=== PATIENT | female | born 1975 | race Caucasian/White ===

== ENCOUNTER 2017-05-29 08:14 | Day surgery (SDC) | payer BC ==
[~2017-05-29 08:14] MED LIST: Lactated Ringers 1,000 ML IV SCH; Lidocaine 1%/Sod Bicarbonate in NS 8.4% 1 ML Syringe PRN; Sodium Chloride 0.9% 10 ML Syringe FLUSH PRN
--- NOTE | 2017-05-29 08:51 | PCM.PREANE ---
Preanesthetic Assessment - Procedure Proposed Procedure: Diagnostic colonoscopy - Anesthesia/Transfusion/Family Hx Anesthesia History: Prior Anesthesia Without Reaction Family History of Anesthesia Reaction: No Transfusion History: No Prior Transfusion(s) - Review of Systems General: No Symptoms Pulmonary: No Symptoms Cardiovascular: No Symptoms Gastrointestinal: No symptoms Neurological: No Symptoms Other: Reports: None - Physical Assessment NPO Status Date: 05/28/17 NPO Status Time: 23:00 Pulse: 81 O2 Sat by Pulse Oximetry: 99 Respiratory Rate: 16 Blood Pressure: 110/66 Temperature: 100.4 C Height: 1.57 m Weight: 69.4 kg ASA Class: 2 Mental Status: Alert & Oriented x3 Airway Class: Mallampati = 1 Dentition: Reports: Normal Dentition Thyro-Mental Finger Breadths: 3 Mouth Opening Finger Breadths: 3 ROM/Head Extension: Full Lungs: Clear to auscultation, Normal respiratory effort Cardiovascular: Regular Rate, Regular Rhythm - Lab Values: Laboratory Last Values Urine HCG, Qual Negative (NEGATIVE) 05/29/17 08:25 Potassium 4.0 05-07-17 - Allergies Allergies/Adverse Reactions: Allergies Allergy/AdvReac Type Severity Reaction Status Date / Time No Known Allergies Allergy Verified 05/27/17 13:00 - Blood Blood Available: No Product(s) Available: None - Acknowledgements Anesthesia Type Planned: MAC Pt an Appropriate Candidate for the Planned Anesthesia: Yes Alternatives and Risks of Anesthesia Discussed w Pt/Guardian: Yes Pt/Guardian Understands and Agrees with Anesthesia Plan: Yes PreAnesthesia Questionnaire HEENT History: Reports: None Cardiovascular History: Reports: Other (See Below) Other Cardiovascular History: fluid retention Respiratory History: Reports: None Gastrointestinal History: Reports: Chronic Constipation, Other (See Below) Other Gastrointestinal History: bowel wall thickening Genitourinary History: Reports: Other (See Below) Other Genitourinary History: microscopic hematuria 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: Musculoskeletal History: Reports: Other (See Below) Other Musculoskeletal History: L foot fracture, fracture of 5th metatarsal bone Neurological History: Reports: None Psychiatric History: Reports: None Endocrine/Metabolic History: Reports: Obesity/BMI 30+ Hematologic History: Reports: Other (See Below) Other Hematologic History: hypokalemia Immunologic History: Reports: None Oncologic (Cancer) History: Reports: None Dermatologic History: Reports: None - Past Surgical History Head Surgeries/Procedures: Reports: None HEENT Surgical History: Reports: None Cardiovascular Surgical History: Reports: None Respiratory Surgical History: Reports: None GI Surgical History: Reports: Cholecystectomy Female Surgical History: Reports: Section - HOME MEDS Home Medications: Home Meds Furosemide [Lasix] 20 mg PO DAILY 05/27/17 [History] Phentermine HCl 37.5 mg PO DAILY 05/27/17 [History] Potassium Chloride [Klor-Con] 20 mg PO DAILY 05/27/17 [History] medroxyPROGESTERone Acetate [Depo-Provera] 150 mg IM ASDIRECTED 05/27/17 [ History] - CURRENT (IN HOUSE) MEDS Current Meds: Current Medications Lactated Ringer's (Ringers, Lactated) 1,000 mls @ 125 mls/hr IV ASDIRECTED SILVANO Stop: 05/29/17 23:00 Lidocaine/Sodium Bicarbonate (Buffered Lidocaine 1% In Ns 8.4%) 0.25 ml .XX ONETIME PRN PRN Reason: Prior to IV Start Stop: 05/29/17 18:00 Sodium Chloride (Saline Flush) 10 ml FLUSH ASDIRECTED PRN PRN Reason: Keep Vein Open Stop: 05/29/17 18:00
[2017-05-29] MEDS ORDERED: Propofol 200 MG/20 ML SDV ONE (09:27)
[2017-05-29] MEDS ORDERED: Lidocaine 1% 4 ML ONE (09:27)
[2017-05-29] MEDS ORDERED: fentaNYL 100 MCG/2 ML SDV ONE (09:27)
[2017-05-29] MEDS ORDERED: Midazolam 1 MG/ML 2 ML SDV ONE (09:27)
--- NOTE | 2017-05-29 10:26 | PCM48HPAN ---
Post Anesthesia Note - EVALUATION WITHIN 48HRS OF ANESTHETIC Vital Signs in Normal Range: Yes Patient Participated in Evaluation: Yes Respiratory Function Stable: Yes Airway Patent: Yes Cardiovascular Function Stable: Yes Hydration Status Stable: Yes Pain Control Satisfactory: Yes Nausea and Vomiting Control Satisfactory: Yes Mental Status Recovered: Yes
--- NOTE | 2017-05-29 10:26 | PCM.OPNOTE ---
- General Post-Op/Procedure Note Date of Surgery/Procedure: 05/29/17 Operative Procedure(s): Colonoscopy with ileal biopsy 2 descending colon biopsy 1 and rectal biopsy 2 all using cold forceps Findings: 1. Melanosis coli 2. Posterior midline anal fissure 3. Anal tag posteriorly 4. No endoscopic gross evidence of inflammatory bowel disease Pre Op Diagnosis: Thickened descending colon by CT scan with associated change in bowel habits Post-Op Diagnosis: 1. Melanosis coli. 2. Posterior midline anal fissure with associated anal tag Anesthesia Technique: MAC, Moderate sedation Primary Surgeon: Cam[place] See Pathology: 1. Biopsy 2 2. Descending colon biopsy 1 3. Rectal biopsy 2 EBL in mLs: 0 Complications: None Condition: Good Free Text/Narrative:: After adequate IV sedation and analgesia was obtained with monitoring the patient was placed on her left side. Perianal inspection revealed a posterior midline fissure with exposed smooth muscle. There was an associated anal tag which was small. The sphincter tone was increased on digital rectal examination. A lubricated colonoscope was inserted into the rectum then advanced under direct vision to the cecum without difficulty. The bowel preparation was excellent. The ileum was intubated and was grossly normal. 2 biopsies were taken for histologic review given her change in bowel habits. The cecum, right, transverse, and descending colons were only remarkable for melanosis coli with no obvious endoscopic features consistent with colitis. I took random biopsies of the descending colon because of the CT findings. The sigmoid was unremarkable as well. The rectum in both views contained melanosis but no inflammatory changes. I took 2 random rectal biopsies with cold forceps. Air was removed as I finished the procedure which she tolerated well. Computer Graphic Artist photographs taken for the patient and for the record.
[2017-05-29 10:29] VITALS: BP 103/64
== END 2017-05-29 10:51 | disposition home or self-care (01) ==
LOC: JD.SDS 08:14
PROVIDERS: ATTEND Surgery
DX: K62.1 Rectal polyp (principal); K63.89 Other specified diseases of intestine; E66.9 Obesity, unspecified; E87.6 Hypokalemia; Z68.29 Body mass index [BMI] 29.0-29.9, adult; Z79.899 Other long term (current) drug therapy; Z98.890 Other specified postprocedural states
CPT/HCPCS: 45380; 81025; 88305; J2250; J3010; J7120; J2704

== ENCOUNTER 2020-04-07 18:59 | Observation (INO) | payer BC ==
--- NOTE | 2020-04-07 19:18 | EDM.PDOC ---
ED HPI GENERAL MEDICAL PROBLEM - General Chief Complaint: General Stated Complaint: LOW POTASSIUM Time Seen by Provider: 04/07/20 19:18 - History of Present Illness INITIAL COMMENTS - FREE TEXT/NARRATIVE: 44-year-old female presents emergency room with low potassium. 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 The patient is on supplemental potassium taken approximately 80 mEq a day. She is on Lasix 20 mg a day and she has recurrent problems with low potassium. The patient was instructed to come to the emergency room to have this treated. The patient has a lab size on her phone and indeed she has potassium of 2.4. She has some modest renal insufficiency. They did not check a magnesium.patient has problems with her fingers spasming in a flexion position at times otherwise she's doing okay. - Related Data Allergies Allergy/AdvReac Type Severity Reaction Status Date / Time acetaminophen Allergy Severe Hives Verified 04/07/20 19:19 [From Darvocet-N] propoxyphene Allergy Severe Hives Verified 04/07/20 19:19 [From Darvocet-N] Home Meds: Home Meds Furosemide [Lasix] 20 mg PO DAILY 05/27/17 [History] Phentermine HCl 37.5 mg PO DAILY 05/27/17 [History] Linaclotide [Linzess] 145 mcg PO DAILY 06/29/19 [History] Potassium Chloride 20 meq PO BID 04/07/20 [History] Potassium Chloride 40 meq PO ACBREAKFAST 04/07/20 [History] Past Medical History HEENT History: Reports: None Other HEENT History: pharyngitis Cardiovascular History: Reports: Other (See Below) Other Cardiovascular History: fluid retention Respiratory History: Reports: None Other Respiratory History: cough Gastrointestinal History: Reports: Chronic Constipation, Other (See Below) Other Gastrointestinal History: bowel wall thickening Genitourinary History: Reports: Other (See Below) Other Genitourinary History: microscopic hematuria 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 OPERATOR 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: dysmenorrhea, menorrhagia, , x2 Musculoskeletal History: Reports: Other (See Below) Other Musculoskeletal History: L foot fracture, fracture of 5th metatarsal bone Neurological History: Reports: None Psychiatric History: Reports: None Endocrine/Metabolic History: Reports: Obesity/BMI 30+ Hematologic History: Reports: Other (See Below) Other Hematologic History: hypokalemia Immunologic History: Reports: None Oncologic (Cancer) History: Reports: None Dermatologic History: Reports: None - Past Surgical History HEENT Surgical History: Reports: None Female Surgical History: Reports: Section Social & Family History - Caffeine Use Caffeine Use: Reports: Soda ED ROS GENERAL - Review of Systems Review Of Systems: See Below Constitutional: Reports: No Symptoms HEENT: Reports: No Symptoms Respiratory: Reports: No Symptoms, Cough Endocrine: Reports: No Symptoms GI/Abdominal: Reports: No Symptoms : Reports: No Symptoms Musculoskeletal: Reports: Other (Cramping and spasm) Skin: Reports: No Symptoms Neurological: Reports: No Symptoms ED EXAM, GENERAL - Physical Exam Exam: See Below Exam Limited By: No Limitations General Appearance: Alert, No Apparent Distress Head: Atraumatic, Normocephalic Neck: Normal Inspection, Supple, Non-Tender, Full Range of Motion. No: Lymphadenopathy (L), Lymphadenopathy (R) Respiratory/Chest: No Respiratory Distress, Lungs Clear, Normal Breath Sounds Cardiovascular: Regular Rate, Rhythm, No Edema, No Murmur GI/Abdominal: Normal Bowel Sounds, Soft, Non-Tender Back Exam: Normal Inspection. No: CVA Tenderness (L), CVA Tenderness (R) Extremities: Normal Inspection, No Pedal Edema Neurological: Alert, Oriented, Normal Cognition Skin Exam: Warm, Dry, Intact Course - Vital Signs Last Recorded V/S: Last Vital Signs Temp 36.6 C 04/07/20 19:27 Pulse 83 04/07/20 19:27 Resp 20 04/07/20 19:27 BP 107/84 04/07/20 19:27 Pulse Ox 100 04/07/20 19:27 - Orders/Labs/Meds Orders: Active Orders 24 hr Category Date Time Status Patient Status [ADT] Routine ADT 04/07/20 20:08 Active BASIC METABOLIC PANEL,BMP [CHEM] Stat Lab 04/07/20 19:48 Ordered MAGNESIUM [CHEM] Stat Lab 04/07/20 19:48 Ordered Potassium Chloride [KCl 10 MEQ in Water 100 ML] 10 meq Med 04/07/20 20:00 Active Premix Bag 1 bag IV Q1H Sodium Chloride 0.9% [Normal Saline] 1,000 ml Med 04/07/20 20:15 Active IV ASDIRECTED Medication Orders Potassium Chloride 10 meq/ (Premix) 100 mls @ 100 mls/hr IV Q1H SILVANO Stop: 04/07/20 23:59 Last Admin: 04/07/20 20:06 Dose: 100 mls/hr Sodium Chloride (Normal Saline) 1,000 mls @ 50 mls/hr IV ASDIRECTED SILVANO Last Admin: 04/07/20 20:06 Dose: 50 mls/hr Meds: Medications Generic Name Dose Route Start Last Admin Trade Name Jacqueline PRN Reason Stop Dose Admin Potassium Chloride 10 meq/ 100 mls @ 100 mls/hr 04/07/20 20:00 04/07/20 20:06 Premix IV 04/07/20 23:59 100 mls/hr Q1H SILVANO Administration Sodium Chloride 1,000 mls @ 50 mls/hr 04/07/20 20:15 04/07/20 20:06 Normal Saline IV 50 mls/hr ASDIRECTED SILVANO Administration - Re-Assessments/Exams Free Text/Narrative Re-Assessment/Exam: 04/07/20 20:12 Check a basic metabolic panel as well as a magnesium. I did discuss situation with Dr. Barrientos our hospitalist who agrees the patient would probably be better served placed on observation for her potassium infusions. Departure - Departure Time of Disposition: 20:12 Disposition: Refer to Observation Clinical Impression: Hypokalemia - Discharge Information Referrals: Sean Ritter MD [Primary Care Provider] - Forms: ED Department Discharge Sepsis Event Note - Focused Exam Vital Signs: Vital Signs Temp Pulse Resp BP Pulse Ox 04/07/20 19:27 36.6 C 83 20 107/84 100 Date Exam was Performed: 04/07/20 Time Exam was Performed: 20:11 - My Orders Last 24 Hours: My Active Orders 04/07/20 19:48 BASIC METABOLIC PANEL,BMP [CHEM] Stat MAGNESIUM [CHEM] Stat 04/07/20 20:00 Potassium Chloride [KCl 10 MEQ in Water 100 ML] 10 meq Premix Bag 1 bag IV Q1H 04/07/20 20:08 Patient Status [ADT] Routine 04/07/20 20:15 Sodium Chloride 0.9% [Normal Saline] 1,000 ml IV ASDIRECTED - Assessment/Plan Last 24 Hours: My Active Orders 04/07/20 19:48 BASIC METABOLIC PANEL,BMP [CHEM] Stat MAGNESIUM [CHEM] Stat 04/07/20 20:00 Potassium Chloride [KCl 10 MEQ in Water 100 ML] 10 meq Premix Bag 1 bag IV Q1H 04/07/20 20:08 Patient Status [ADT] Routine 04/07/20 20:15 Sodium Chloride 0.9% [Normal Saline] 1,000 ml IV ASDIRECTED
[2020-04-07] MEDS: Potassium Chloride 10 MEQ in Premix Bag 1 BAG IV SCH ×3 (20:06→23:51)
[2020-04-07] MEDS ORDERED: Sodium Chloride 0.9% 1,000 ML IV SCH (20:15)
--- NOTE | 2020-04-07 20:18 | PCM.HP.2 ---
H&P History of Present Illness - General Date of Service: 04/07/20 Admit Problem/Dx: Admission Diagnosis/Problem Admission Diagnosis/Problem Hypokalemia Source of Information: Patient, Old Records, Provider, RN, RN Notes Reviewed History Limitations: Reports: No Limitations - History of Present Illness Initial Comments - Free Text/Narative: Paris Maria is a 44-year-old female who presents to ED on 04/07/2020 after being directed to report here due to low potassium by her software development intern. Patient had reportedly had labs drawn earlier in the day and potassium was found to be 2.4. She is scheduled to follow-up with her software development intern in clinic on 04/13/20. She is on 80 mEq of daily potassium intake but does report a longstanding history of hypokalemia in part due to daily Lasix use. ED provider did verify lab results on the patient's phone. He noted modest renal insufficiency and patient reports this is normal for her. Patient denies any current problems aside from occasional finger spasming, which she states is worse when her labs are off. In the ED temp was 36.6. HR is 83. Respirations 20. Blood pressure 107/84. Pulse ox 100% on room air. Given 4 potassium riders and started on NS. BMP and magnesium are obtained here: Sodium is 141, potassium 2.3, chloride 104, carbon dioxide 24, anion gap 15.3, BUN is 30, creatinine 1.4, GFR is 41, glucose 95, calcium 8.8, magnesium 2.4. She carries a history of fluid retention, chronic constipation, bowel wall thickening, microscopic hematuria, dysmenorrhea, menorrhagia, hypokalemia, renal insufficiency, anxiety and depression. She is a full code. Her PCP is Chelle Marquez NP. She sees Dr. Ritter for nephrology. - Related Data Allergies/Adverse Reactions: Allergies Allergy/AdvReac Type Severity Reaction Status Date / Time acetaminophen Allergy Severe Hives Verified 04/07/20 20:53 [From Darvocet-N] propoxyphene Allergy Severe Hives Verified 04/07/20 20:53 [From Darvocet-N] Home Medications: Home Meds Furosemide [Lasix] 20 mg PO DAILY 05/27/17 [History] Phentermine HCl 37.5 mg PO DAILY 05/27/17 [History] Linaclotide [Linzess] 145 mcg PO DAILY 06/29/19 [History] Multivitamin [Multi-Vitamin Daily] 1 tab PO DAILY 04/07/20 [History] Potassium Chloride 20 meq PO BID 04/07/20 [History] Potassium Chloride 40 meq PO ACBREAKFAST 04/07/20 [History] Past Medical History HEENT History: Reports: None Other HEENT History: pharyngitis Cardiovascular History: Reports: Other (See Below) Other Cardiovascular History: fluid retention Respiratory History: Reports: None Other Respiratory History: cough Gastrointestinal History: Reports: Chronic Constipation, Other (See Below) Other Gastrointestinal History: bowel wall thickening Genitourinary History: Reports: Other (See Below) Other Genitourinary History: microscopic hematuria 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/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 History: dysmenorrhea, menorrhagia, , x2 Musculoskeletal History: Reports: Other (See Below) Other Musculoskeletal History: L foot fracture, fracture of 5th metatarsal bone Neurological History: Reports: None Psychiatric History: Reports: None Endocrine/Metabolic History: Reports: Obesity/BMI 30+ Hematologic History: Reports: Other (See Below) Other Hematologic History: hypokalemia Immunologic History: Reports: None Oncologic (Cancer) History: Reports: None Dermatologic History: Reports: None - Past Surgical History HEENT Surgical History: Reports: None Female Surgical History: Reports: Section Social & Family History - Tobacco Use Smoking Status *Q: Never Smoker - Caffeine Use Caffeine Use: Reports: Soda - Recreational Drug Use Recreational Drug Use: No H&P Review of Systems - Review of Systems: Review Of Systems: See Below General: Reports: No Symptoms. Denies: Fever, Chills, Malaise, Weakness, Fatigue HEENT: Reports: No Symptoms. Denies: Headaches, Sore Throat Pulmonary: Reports: No Symptoms. Denies: Shortness of Breath, Wheezing, Pleuritic Chest Pain, Cough, Sputum Cardiovascular: Reports: No Symptoms. Denies: Chest Pain, Palpitations, Dyspnea on Exertion, Edema, Lightheadedness Gastrointestinal: Reports: No Symptoms Genitourinary: Reports: No Symptoms. Denies: Pain Musculoskeletal: Reports: Other (Occasional muscle spasms - none recently) Skin: Reports: No Symptoms Psychiatric: Reports: No Symptoms. Denies: Confusion Neurological: Reports: No Symptoms. Denies: Confusion, Numbness, Pre-Existing Deficit, Tingling, Difficulty Walking, Weakness, Gait Disturbance Hematologic/Lymphatic: Reports: No Symptoms Immunologic: Reports: No Symptoms Exam - Exam Exam: See Below - Vital Signs Vital Signs: Last Vital Signs Temp 97.9 F 04/07/20 19:27 Pulse 83 04/07/20 19:27 Resp 20 04/07/20 19:27 BP 107/84 04/07/20 19:27 Pulse Ox 100 04/07/20 19:27 Weight: 144 lb - Exam Quality Assessment: DVT Prophylaxis General: Alert, Oriented, Cooperative. No: Mild Distress HEENT: Conjunctiva Clear, EACs Clear, EOMI, Nares Patent, Posterior Pharynx Clear, PERRLA Neck: Supple, Trachea Midline Lungs: Clear to Auscultation, Normal Respiratory Effort Cardiovascular: Regular Rate, Regular Rhythm GI/Abdominal Exam: Normal Bowel Sounds, Soft, Non-Tender, No Distention (Female) Exam: Deferred Rectal (Female) Exam: Deferred Back Exam: Normal Inspection, Full Range of Motion Extremities: Normal Inspection, Normal Range of Motion, Non-Tender, No Pedal Edema, Normal Capillary Refill Skin: Warm, Dry, Intact Neurological: Cranial Nerves Intact (Grossly ) Neuro Extensive - Mental Status: Alert, Oriented x3, Normal Mood/Affect - Patient Data Result Diagrams: 04/07/20 20:14 Sepsis Event Note - Evaluation Sepsis Screening Result: No Definite Risk - Focused Exam Vital Signs: Vital Signs Temp Pulse Resp BP Pulse Ox 04/07/20 19:27 97.9 F 83 20 107/84 100 Date Exam was Performed: 04/07/20 Time Exam was Performed: 20:52 - Problem List (1) Renal insufficiency SNOMED Code(s): 291023663, 161811228 ICD Code: N28.9 - DISORDER OF KIDNEY AND URETER, UNSPECIFIED Status: Chronic Priority: Medium Current Visit: Yes (2) Anxiety and depression SNOMED Code(s): 924367120 ICD Code: F41.9 - ANXIETY DISORDER, UNSPECIFIED; F32.9 - MAJOR DEPRESSIVE DISORDER, SINGLE EPISODE, UNSPECIFIED Status: Chronic Priority: Low Current Visit: No (3) Hypokalemia SNOMED Code(s): 78862001 ICD Code: E87.6 - HYPOKALEMIA Status: Acute Priority: High Current Visit: Yes (4) Chronic constipation SNOMED Code(s): 560867496 ICD Code: K59.09 - OTHER CONSTIPATION Status: Chronic Priority: Low Current Visit: No (5) Bowel wall thickening SNOMED Code(s): 261720794 ICD Code: K63.9 - DISEASE OF INTESTINE, UNSPECIFIED Status: Chronic Priority: Low Current Visit: No (6) Fluid retention SNOMED Code(s): 16889382 ICD Code: R60.9 - EDEMA, UNSPECIFIED Status: Chronic Priority: Low Current Visit: Yes (7) Hematuria SNOMED Code(s): 48334626 ICD Code: R31.9 - HEMATURIA, UNSPECIFIED Status: Chronic Priority: Low Current Visit: No Qualifiers: Hematuria type: unspecified type Qualified Code(s): R31.9 - Hematuria, unspecified Problem List Initiated/Reviewed/Updated: Yes Orders Last 24hrs: Active Orders 24 hr Category Date Time Status Patient Status [ADT] Routine ADT 04/07/20 20:08 Active BASIC METABOLIC PANEL,BMP [CHEM] Stat Lab 04/07/20 19:48 Ordered MAGNESIUM [CHEM] Stat Lab 04/07/20 19:48 Ordered Potassium Chloride [KCl 10 MEQ in Water 100 ML] 10 meq Med 04/07/20 20:00 Active Premix Bag 1 bag IV Q1H Sodium Chloride 0.9% [Normal Saline] 1,000 ml Med 04/07/20 20:15 Active IV ASDIRECTED Medication Orders Potassium Chloride 10 meq/ (Premix) 100 mls @ 100 mls/hr IV Q1H SILVANO Stop: 04/07/20 23:59 Last Admin: 04/07/20 20:06 Dose: 100 mls/hr Sodium Chloride (Normal Saline) 1,000 mls @ 50 mls/hr IV ASDIRECTED SILVANO Last Admin: 04/07/20 20:06 Dose: 50 mls/hr Assessment/Plan Comment:: Hypokalemia Fluid retention Renal insufficiency Chronic Hematuria Labs drawn by nephrology (Dr. Ritter) today and told to come to ED due to potassium of 2.4; Repeat potassium 2.3 here Has follow-up nephrology appt on 04/13/20 in clinic On 80 meq daily supplementation On lasix 20 mg daily Creatinine 1.4 BUN 30 GFR 41 Baseline creatinine appears to be around 1.3 with a GFR of 45-50 Magnesium good at 2.4 4 potassium riders given in ED PLAN -Supplement potassium -Hold lasix for now -Recheck labs in AM -IV fluids as ordered Chronic constipation On home Linzess PLAN -Continue home med Anxiety Depression Was taking home Lexapro but stopped several months ago Reports minimal to no symptoms PLAN -Monitor VTE: EMELI khan GI Prophylaxis: Not indicated PCP: Chelle Marquez NP Nephrology: Dr. Ritter Disposition: Patient will be admitted to the floor observation status on telemetry for supplementation and management of her hypokalemia. Likely discharge tomorrow pending improvement of labs. - Mortality Measure Prognosis:: Good
[2020-04-07] MEDS: Potassium Chloride 20 MEQ Tab.ER PO SCH (22:18)
[2020-04-07] MEDS: Acetaminophen 325 MG Tab PO PRN (22:18)
[2020-04-07] MEDS: LINACLOTIDE 145 MCG PO SCH (22:45)
[2020-04-08] MEDS: Potassium Chloride 10 MEQ in Premix Bag 1 BAG IV SCH ×9 (01:45→22:33)
[2020-04-08] MEDS ORDERED: NS + KCl 20mEq/L 1,000 ML IV SCH (02:00)
[2020-04-08] MEDS: Acetaminophen 325 MG Tab PO PRN ×2 (06:14→17:25)
[2020-04-08] MEDS: Potassium Chloride 20 MEQ Tab.ER PO SCH ×2 (06:15→16:20)
--- NOTE | 2020-04-08 07:32 | PCM.PN ---
- General Info Date of Service: 04/08/20 Admission Dx/Problem (Free Text): Admission Diagnosis/Problem Admission Diagnosis/Problem Hypokalemia Functional Status: Reports: Pain Controlled, Tolerating Diet, Ambulating, Urinating. Denies: New Symptoms - Review of Systems General: Reports: No Symptoms. Denies: Fever, Weakness, Fatigue, Malaise, Chills HEENT: Reports: No Symptoms. Denies: Headaches, Sore Throat Pulmonary: Reports: No Symptoms. Denies: Shortness of Breath, Pleuritic Chest Pain, Cough, Sputum, Wheezing Cardiovascular: Reports: Edema (mild ). Denies: Chest Pain, Palpitations, Dyspnea on Exertion, Lightheadedness Gastrointestinal: Reports: No Symptoms. Denies: Abdominal Pain, Constipation, Decreased Appetite, Diarrhea, Nausea, Vomiting Genitourinary: Reports: No Symptoms. Denies: Pain Musculoskeletal: Reports: No Symptoms Skin: Reports: No Symptoms. Denies: Cyanosis Neurological: Reports: No Symptoms. Denies: Confusion, Numbness, Tingling, Trouble Speaking, Difficulty Walking, Weakness, Gait Disturbance Psychiatric: Reports: No Symptoms - Patient Data Vitals - Most Recent: Last Vital Signs Temp 97.3 F 04/08/20 04:01 Pulse 69 04/08/20 04:01 Resp 18 04/08/20 04:01 BP 93/72 04/08/20 04:01 Pulse Ox 98 04/08/20 04:01 Weight - Most Recent: 150 lb 3.2 oz I&O - Last 24 Hours: Intake & Output 04/07/20 04/08/20 04/08/20 22:59 06:59 14:59 Intake Total 1100 Output Total 350 Balance 750 Lab Results Last 24 Hours: Laboratory Results - last 24 hr 04/07/20 04/08/20 Range/Units 20:14 05:27 Sodium 141 142 (136-145) mEq/L Potassium 2.3 L* D 2.6 L (3.5-5.1) mEq/L Chloride 104 109 H (98-107) mEq/L Carbon Dioxide 24 21 (21-32) mEq/L Anion Gap 15.3 H 14.6 (5-15) BUN 30 H 22 H (7-18) mg/dL Creatinine 1.4 H 1.1 H (0.55-1.02) mg/dL Est Cr Clr Drug Dosing 39.50 52.69 mL/min Estimated GFR (MDRD) 41 54 (>60) mL/min BUN/Creatinine Ratio 21.4 H 20.0 H (14-18) Glucose 95 94 (74-106) mg/dL Calcium 8.8 8.3 L (8.5-10.1) mg/dL Phosphorus 3.2 (2.6-4.7) mg/dL Magnesium 2.4 2.3 (1.8-2.4) mg/dl Total Bilirubin 0.5 (0.2-1.0) mg/dL AST 15 (15-37) U/L ALT 20 (14-59) U/L Alkaline Phosphatase 43 L (46-116) U/L Total Protein 6.3 L (6.4-8.2) g/dl Albumin 3.0 L (3.4-5.0) g/dl Globulin 3.3 gm/dL Albumin/Globulin Ratio 0.9 L (1-2) Med Orders - Current: Current Medications Acetaminophen (Tylenol) 650 mg PO Q6H PRN PRN Reason: Pain/Fever Last Admin: 04/08/20 06:14 Dose: 650 mg Potassium Chloride 10 meq/ (Premix) 100 mls @ 100 mls/hr IV Q1H [facility] Stop: 04/08/20 15:44 Multivitamins (Thera) 1 each PO DAILY [facility] Linaclotide [Linzess ] 145 Mcg Cap Own Med 145 mcg PO BEDTIME [facility] Last Admin: 04/07/20 22:45 Dose: 145 mcg Potassium Chloride (Klor-Con M20) 40 meq PO BIDMEALS [facility] Last Admin: 04/08/20 06:15 Dose: 40 meq Potassium Chloride (Klor-Con M20) 80 meq PO BIDMEALS [facility] Discontinued Medications Potassium Chloride 10 meq/ (Premix) 100 mls @ 100 mls/hr IV Q1H [facility] Stop: 04/07/20 23:59 Last Admin: 04/08/20 01:45 Dose: 100 mls/hr Sodium Chloride (Normal Saline) 1,000 mls @ 50 mls/hr IV ASDIRECTED [facility] Stop: 04/08/20 02:00 Last Admin: 04/07/20 20:06 Dose: 50 mls/hr Potassium Chloride/Sodium Chloride (Normal Saline With 20 Meq Kcl) 1,000 mls @ 100 mls/hr IV ASDIRECTED [facility] Last Admin: 04/08/20 03:52 Dose: 100 mls/hr - Exam Quality Assessment: DVT Prophylaxis General: Alert, Oriented, Cooperative, No Acute Distress HEENT: Pupils Equal, Pupils Reactive, Mucous Membr. Moist/[place] Neck: Supple, Trachea Midline Lungs: Clear to Auscultation, Normal Respiratory Effort Cardiovascular: Regular Rate, Regular Rhythm GI/Abdominal Exam: Normal Bowel Sounds, Soft, Non-Tender, No Distention (Female) Exam: Deferred Back Exam: Normal Inspection, Full Range of Motion Extremities: Normal Inspection, Normal Range of Motion, Non-Tender, Normal Capillary Refill, Pedal Edema (trace ) Peripheral Pulses: 3+: Radial (L), Radial (R), Dorsalis Pedis (L), Dorsalis Pedis (R) Skin: Warm, Dry, Intact Neurological: No New Focal Deficit Psy/Mental Status: Alert, Normal Affect, Normal Mood Sepsis Event Note - Evaluation Sepsis Screening Result: No Definite Risk - Focused Exam Vital Signs: Vital Signs Temp Pulse Resp BP Pulse Ox 04/08/20 04:01 97.3 F 69 18 93/72 98 04/07/20 20:40 76 20 115/70 100 Date Exam was Performed: 04/08/20 Time Exam was Performed: 12:21 - Problem List & Annotations (1) Renal insufficiency SNOMED Code(s): 120391852, 679374975 Code(s): N28.9 - DISORDER OF KIDNEY AND URETER, UNSPECIFIED Status: Chronic Priority: Medium Current Visit: Yes (2) Anxiety and depression SNOMED Code(s): 343948231 Code(s): F41.9 - ANXIETY DISORDER, UNSPECIFIED; F32.9 - MAJOR DEPRESSIVE DISORDER, SINGLE EPISODE, UNSPECIFIED Status: Chronic Priority: Low Current Visit: No (3) Hypokalemia SNOMED Code(s): 49710785 Code(s): E87.6 - HYPOKALEMIA Status: Acute Priority: High Current Visit : Yes (4) Chronic constipation SNOMED Code(s): 701260138 Code(s): K59.09 - OTHER CONSTIPATION Status: Chronic Priority: Low Current Visit: No (5) Bowel wall thickening SNOMED Code(s): 647302779 Code(s): K63.9 - DISEASE OF INTESTINE, UNSPECIFIED Status: Chronic Priority: Low Current Visit: No (6) Fluid retention SNOMED Code(s): 82571748 Code(s): R60.9 - EDEMA, UNSPECIFIED Status: Chronic Priority: Low Current Visit: Yes (7) Hematuria SNOMED Code(s): 90883833 Code(s): R31.9 - HEMATURIA, UNSPECIFIED Status: Chronic Priority: Low Current Visit: No Qualifiers: Hematuria type: unspecified type Qualified Code(s): R31.9 - Hematuria, unspecified - Problem List Review Problem List Initiated/Reviewed/Updated: Yes - My Orders Last 24 Hours: My Active Orders 04/07/20 20:18 Oxygen Therapy [RC] PRN Up With Assistance [RC] ASDIRECTED VTE/DVT Education [RC] 09,21 Vital Signs [RC] Q4HR Resuscitation Status Routine 04/07/20 20:20 Intake and Output [RC] 04,16 Pulse Oximetry [RC] PRN 04/07/20 20:22 Patient Status [ADT] Routine 04/07/20 21:25 Antiembolic Devices [RC] BID EMELI Hose [Antiembolic Hose] [OM.PC] Routine 04/07/20 21:28 Acetaminophen [Tylenol] 650 mg PO Q6H PRN 04/07/20 21:45 Potassium Chloride [Klor-Con M20] 40 meq PO BIDMEALS 04/07/20 22:30 Linaclotide [Linzess] 145 mcg PO BEDTIME 04/08/20 07:45 Lactated Ringers @ 75 MLS/HR(1000ml Bag) Lactated Ringers [Ringers, Lactated] 1 ,000 ml IV ASDIRECTED Potassium Chloride [KCl 10 MEQ in Water 100 ML] 10 meq Premix Bag 1 bag IV Q1H 04/08/20 09:00 Multivitamins,Therapeutic [Thera] 1 each PO DAILY 04/08/20 17:00 Potassium Chloride [Klor-Con M20] 80 meq PO BIDMEALS 04/08/20 Breakfast Renal Non-Dialysis Diet [DIET] - Plan Plan:: Day of admission: Reported to ED on 04/07/20 after potassium of 2.4 noted on nephrology labs Reported occasional spasms of hands - states this is common when potassium is low No other concerns or symptoms Supplementation started Day 1: Potassium improved to 2.6 Increased PO potassium to 80 meq BID 8 potassium riders ordered Reports mild increase in edema - common for her when receiving IV fluids. Last BM today Hypokalemia Fluid retention Renal insufficiency Chronic Hematuria Labs drawn by nephrology (Dr. Ritter) today and told to come to ED due to potassium of 2.4; Repeat potassium 2.3 here Has follow-up nephrology appt on 04/13/20 in clinic On 80 meq daily supplementation On lasix 20 mg daily 4 potassium riders given in ED Potassium 2.3-->2.6 Creatinine 1.4-->1.1 BUN 30-->22 GFR 41-->54 Baseline creatinine appears to be around 1.3 with a GFR of 45-50 Magnesium 2.4 -->2.3 Phosphorous 3.2 PLAN -Supplement potassium -Hold lasix for now -Recheck labs in AM and at 1800 -IV fluids as ordered - discontinue once riders are done -Start spironolactone 12.5mg Chronic constipation On home Linzess PLAN -Continue home med Anxiety Depression Was taking home Lexapro but stopped several months ago Reports minimal to no symptoms PLAN -Monitor VTE: EMELI khan GI Prophylaxis: Not indicated PCP: Chelle Marquez NP Nephrology: Dr. Ritter Code status: Full code Disposition: Patient will be admitted to the floor observation status on telemetry for supplementation and management of her hypokalemia. Unfortunately her labs did not respond as rapidly as had hoped. Likely discharge 04/09/20 pending improvement of labs.
[2020-04-08] MEDS ORDERED: Lactated Ringers 1,000 ML IV SCH (07:45)
[2020-04-08] MEDS: Multivitamins,Therapeutic Tab PO SCH (08:00)
[2020-04-08] MEDS: Spironolactone 25 MG Tab PO SCH (11:41)
[2020-04-08] MEDS: LINACLOTIDE 145 MCG PO SCH (20:45)
[2020-04-08] MEDS ORDERED: Potassium Chloride 10 MEQ in Premix Bag 1 BAG IV STA (22:34)
[2020-04-09] MEDS: Potassium Chloride 20 MEQ Tab.ER PO SCH (06:03)
[2020-04-09] MEDS: Multivitamins,Therapeutic Tab PO SCH (08:51)
[2020-04-09] MEDS: Spironolactone 25 MG Tab PO SCH (08:51)
[2020-04-09] MEDS ORDERED: Spironolactone 25 MG Tab PO ONE (09:15)
--- NOTE | 2020-04-09 17:03 | PCM.DCSUM1 ---
Discharge Summary - Hospital Course HPI Initial Comments: Paris Maria is a 44-year-old female who presents to ED on 04/07/2020 after being directed to report here due to low potassium by her garage helper. Patient had reportedly had labs drawn earlier in the day and potassium was found to be 2.4. She is scheduled to follow-up with her garage helper in clinic on 04/13/20. She is on 80 mEq of daily potassium intake but does report a longstanding history of hypokalemia in part due to daily Lasix use. ED provider did verify lab results on the patient's phone. He noted modest renal insufficiency and patient reports this is normal for her. Patient denies any current problems aside from occasional finger spasming, which she states is worse when her labs are off. In the ED temp was 36.6. HR is 83. Respirations 20. Blood pressure 107/84. Pulse ox 100% on room air. Given 4 potassium riders and started on NS. BMP and magnesium are obtained here: Sodium is 141, potassium 2.3, chloride 104, carbon dioxide 24, anion gap 15.3, BUN is 30, creatinine 1.4, GFR is 41, glucose 95, calcium 8.8, magnesium 2.4. She carries a history of fluid retention, chronic constipation, bowel wall thickening, microscopic hematuria, dysmenorrhea, menorrhagia, hypokalemia, renal insufficiency, anxiety and depression. She is a full code. Her PCP is Chelle Marquez NP. She sees Dr. Ritter for nephrology. Diagnosis: Stroke: No - Discharge Data Discharge Date: 04/09/20 Discharge Disposition: Home, Self-Care 01 Condition: Good - Referral to Home Health Primary Care Physician: Sean Ritter MD - Discharge Diagnosis/Problem(s) (1) Hypokalemia SNOMED Code(s): 75297135 ICD Code: E87.6 - HYPOKALEMIA Status: Acute Priority: High Current Visit: Yes (2) Renal insufficiency SNOMED Code(s): 605019776, 583599222 ICD Code: N28.9 - DISORDER OF KIDNEY AND URETER, UNSPECIFIED Status: Chronic Priority: Medium Current Visit: Yes - Patient Summary/Data Hospital Course: Day 1: Potassium improved to 2.6 Increased PO potassium to 80 meq BID 8 potassium riders ordered Reports mild increase in edema - common for her when receiving IV fluids. Last BM today Discontinued lasix and started spironolactone Day 2: New K 3.7 Minimal edema up to knees, +1 Increased spironolactone Repeat K 3.5 Discharge to f/u with nephrology on increased KCl replacement and spironolactone - Patient Instructions Diet: Usual Diet as Tolerated Activity: As Tolerated - Discharge Plan *PRESCRIPTION DRUG MONITORING PROGRAM REVIEWED*: No *COPY OF PRESCRIPTION DRUG MONITORING REPORT IN PATIENT EDWIN: No Prescriptions/Med Rec: Potassium Chloride [Klor-Con M20] 80 meq PO BIDMEALS #320 tab.er Spironolactone [Aldactone] 50 mg PO BID #120 tablet Home Medications: Home Meds Phentermine HCl 37.5 mg PO DAILY 05/27/17 [History] Linaclotide [Linzess] 145 mcg PO DAILY 06/29/19 [History] Multivitamin [Multi-Vitamin Daily] 1 tab PO DAILY 04/07/20 [History] Potassium Chloride [Klor-Con M20] 80 meq PO BIDMEALS #320 tab.er 04/09/20 [Rx] Spironolactone [Aldactone] 50 mg PO BID #120 tablet 04/09/20 [Rx] Oxygen Therapy Mode: Room Air Patient Handouts: Hypokalemia Referrals: Chelle Marquez NP [Nurse Practitioner] - Sean Ritter MD [Primary Care Provider] - 04/13/20 8:00 am (Appointment scheduled with Dr Ritter at [facility] in [place] on SaturdayApril 13 @ 0800AM) - Discharge Summary/Plan Comment DC Time >30 min.: Yes - General Info Date of Service: 04/09/20 Subjective Update: Slept OK Tolerating diet Ambulating without any difficulties - Patient Data Vitals - Most Recent: Last Vital Signs Temp 98.6 F 04/09/20 08:55 Pulse 81 04/09/20 08:55 Resp 16 04/09/20 08:55 BP 120/60 04/09/20 08:55 Pulse Ox 100 04/09/20 08:55 Weight - Most Recent: 69.655 kg - Exam Physical Findings Comments:: General: Alert, Oriented, Cooperative, No Acute Distress HEENT: Pupils Equal, Pupils Reactive, EOMI, Mucous Membr. Moist/[place] Neck: Supple, Trachea Midline Lungs: Clear to Auscultation, Normal Respiratory Effort. Denies: Crackles, Rales, Rhonchi, Rub, Stridor, Wheezing Cardiovascular: Regular Rate, Regular Rhythm. Denies: Murmurs, Gallops, Rubs GI/Abdominal Exam: Normal Bowel Sounds, Soft, Non-Tender. No: Distended, Guarding, Rigid, Rebound Back Exam: Normal Inspection Extremities: Normal Inspection, Normal Range of Motion, Non-Tender, Normal Capillary Refill, Pedal Edema Skin: Warm, Dry Neurological: No New Focal Deficit Psy/Mental Status: Alert, Normal Affect, Normal Mood
[2020-04-09 18:16] VITALS: BP 96/65; PULSE 78
== END 2020-04-09 17:40 | disposition home or self-care (01) ==
LOC: SUPCPDRO 18:59 → JD.ED 18:59 → JD.MS 20:08
PROVIDERS: ADMIT Family Medicine; ATTEND Family Medicine
DX: E87.6 Hypokalemia (principal); R60.9 Edema, unspecified; N28.9 Disorder of kidney and ureter, unspecified; F41.9 Anxiety disorder, unspecified; R31.9 Hematuria, unspecified; F32.9 Major depressive disorder, single episode, unspecified; K59.09 Other constipation; K63.89 Other specified diseases of intestine; E66.9 Obesity, unspecified; Z88.6 Allergy status to analgesic agent; Z68.27 Body mass index [BMI] 27.0-27.9, adult; Z79.899 Other long term (current) drug therapy
CPT/HCPCS: 36415; 80048; 80053; 83735; 84100; 84132; 96365; 99285; A9270; J3480; J7030; J7120

== ENCOUNTER 2022-07-17 07:48 | Day surgery (SDC) | payer BC ==
[~2022-07-17 07:48] MED LIST changes: +Lidocaine 1%/Sod Bicarbonate in NS 8.4% 1 ML Syringe IDERM PRN; -Lidocaine 1%/Sod Bicarbonate in NS 8.4% 1 ML Syringe PRN; +Sodium Chloride 0.9% 10 ML Syringe FLUSH SCH
[2022-07-17] MEDS ORDERED: Dexamethasone 4 MG/ML 5 ML MDV ONE (09:30)
[2022-07-17] MEDS ORDERED: Ondansetron 4 MG/2 ML SDV ONE (09:30)
[2022-07-17] MEDS ORDERED: Lidocaine 1% 4 ML ONE (09:30)
[2022-07-17] MEDS ORDERED: Ketorolac 30 MG/ML SDV ONE (09:30)
[2022-07-17] MEDS ORDERED: fentaNYL 250 MCG/5 ML SDV ONE (09:31)
[2022-07-17] MEDS ORDERED: Propofol 200 MG/20 ML SDV ONE ×2 (09:31→11:23)
[2022-07-17] MEDS ORDERED: Lactated Ringers 1,000 ML ONE (09:31)
[2022-07-17] MEDS ORDERED: Lidocaine 1% with EPINEPHrine 1:100,000 10 ML MDV ONE (09:31)
[2022-07-17] MEDS ORDERED: Rocuronium 50 MG/5 ML Vial ONE (09:31)
[2022-07-17] MEDS ORDERED: Sodium Chloride 0.9% 50 ML SDV ONE (09:31)
[2022-07-17] MEDS ORDERED: Midazolam 1 MG/ML 2 ML SDV ONE (09:31)
[2022-07-17] MEDS ORDERED: ceFAZolin 2 GM Vial ONE (09:31)
[2022-07-17] MEDS ORDERED: Bupivacaine 0.5% 30 ML SDV ONE (09:32)
[2022-07-17] MEDS ORDERED: diphenhydrAMINE 50 MG/ML SDV ONE (10:26)
[2022-07-17] MEDS ORDERED: HYDROmorphone 0.5 MG/0.5 ML Syringe ONE ×2 (10:38→11:19)
[2022-07-17] MEDS ORDERED: Neostigmine Methylsulfate 10 MG/10 ML MDV ONE (10:42)
[2022-07-17] MEDS ORDERED: Sodium Chloride 0.9% 100 ML ONE (10:55)
[2022-07-17] MEDS ORDERED: Dexmedetomidine 200 MCG/2 ML SDV ONE (10:55)
[2022-07-17] MEDS ORDERED: Ondansetron 4 MG/2 ML SDV IVPUSH PRN ×2 (11:40→11:53)
[2022-07-17] MEDS ORDERED: Ibuprofen 600 MG Tab PO PRN (11:40)
[2022-07-17] MEDS ORDERED: Ketorolac 30 MG/ML SDV IVPUSH SCH (11:45)
[2022-07-17] MEDS ORDERED: fentaNYL 100 MCG/2 ML SDV IVPUSH PRN (11:53)
[2022-07-17] MEDS ORDERED: HYDROmorphone 0.5 MG/0.5 ML Syringe IVPUSH PRN (11:53)
[2022-07-17] MEDS ORDERED: Acetaminophen/oxyCODONE 325-5 MG Tab PO ONE (13:15)
[2022-07-17 13:46] VITALS: BP 106/79; PULSE 76
== END 2022-07-17 14:10 | disposition home or self-care (01) ==
LOC: JD.SDS 07:48
PROVIDERS: ATTEND Obstetrics & Gynecology
DX: N80.0 Endometriosis of uterus (principal); N72 Inflammatory disease of cervix uteri; F41.9 Anxiety disorder, unspecified; F32.A Depression, unspecified; K21.9 Gastro-esophageal reflux disease without esophagitis; E88.81 Metabolic syndrome and other insulin resistance; E66.9 Obesity, unspecified; E87.6 Hypokalemia; E11.22 Type 2 diabetes mellitus with diabetic chronic kidney disease; N18.9 Chronic kidney disease, unspecified; G62.9 Polyneuropathy, unspecified; N87.9 Dysplasia of cervix uteri, unspecified; Z88.6 Allergy status to analgesic agent; Z91.041 Radiographic dye allergy status; Z79.899 Other long term (current) drug therapy; Z98.890 Other specified postprocedural states; Z90.49 Acquired absence of other specified parts of digestive tract; Z68.29 Body mass index [BMI] 29.0-29.9, adult; Z88.5 Allergy status to narcotic agent
CPT/HCPCS: 36415; 58552; 81025; 86850; 86900; 86901; A9270; J0690; J1100; J1170; J1200; J2250; J2405; J2704; J3010; J3490; J7120; 00944; J1885; J2710